=== PATIENT | female | born 1990 | race Caucasian/White ===

== ENCOUNTER 2017-08-02 18:17 | Observation (INO) | payer MEDICAID ==
[~2017-08-02] VITALS: Ht 167.6 cm; Wt 50.0 kg
[2017-08-02 19:23] LABS: BASOPHILS # (AUTO) 0.04 x10^3/uL (0-0.1); BASOPHILS % (AUTO) 1 % (0-1); EOSINOPHILS # (AUTO) 0.03 x10^3/uL (0-0.4); EOSINOPHILS % (AUTO) 1 % (1-7); LYMPHOCYTES # (AUTO) 1.96 x10^3/uL (1-3.4); LYMPHOCYTES % (AUTO) 35 % (22-44); MD NO; MEAN CORPUSCULAR HEMOGLOBIN 30.6 pg (27.0-34.8); MEAN CORPUSCULAR HGB CONC 34.3 g/dL (32.4-35.8); MEAN CORPUSCULAR VOLUME 89.3 fL (80-100); MEAN PLATELET VOLUME 10.6 fL (7.4-10.4); MONOCYTES # (AUTO) 0.48 x10^3/uL (0.2-0.8); MONOCYTES % (AUTO) 9 % (2-9); NEUTROPHILS # (AUTO) 3.12 x10^3/uL (1.8-6.8); NEUTROPHILS % (AUTO) 55 % (42-75); PLATELET COUNT 240 x10^3/uL (130-400); RED BLOOD COUNT 5.57 x10^6/uL (3.82-5.3); RED CELL DISTRIBUTION WIDTH 13.2 % (9.6-15.2)
[2017-08-02 19:33] LABS: ALANINE AMINOTRANSFERASE 22 U/L (12-78); ALBUMIN 4.1 g/dL (3.4-5.0); ANION GAP 15 mmol/L (5-15); CHLORIDE 103 mmol/L (98-107)
[2017-08-02 19:42] LABS: ALKALINE PHOSPHATASE 76 U/L (45-117); BILIRUBIN,TOTAL 0.7 mg/dL (0.2-1.0); CREATININE 0.97 mg/dL (0.55-1.02); TOTAL PROTEIN 7.9 g/dL (6.4-8.2)
[2017-08-02 19:43] LABS: SALICYLATE LEVEL < 1.7 mg/dL (2.8-20.0)
[2017-08-02 19:44] LABS: ACETAMINOPHEN < 2 mcg/mL (10-30)
[2017-08-03] MEDS ORDERED: LORazepam 1MG TABLET PO PRN (12:00)
[2017-08-03 16:00] LABS: AMPHETAMINE SCREEN, URINE Negative (Negative); BARBITURATE SCREEN, URINE Negative (Negative); BENZODIAZEPINE SCREEN, URINE Negative (Negative); CANNABINOID SCREEN, URINE Negative (Negative); COCAINE SCREEN, URINE Negative (Negative); METHADONE SCREEN, URINE Negative (Negative); OPIATE SCREEN, URINE Negative (Negative)
[2017-08-03] MEDS ORDERED: ZIPRASIDONE 20 MG INJ IM ONE (18:08)
[2017-08-03] MEDS ORDERED: ZIPRASIDONE 20 MG INJ IM PRN (19:00)
[2017-08-04 05:56] LABS: ANION GAP 9 mmol/L (5-15); CALCIUM 8.8 mg/dL (8.5-10.1); CHLORIDE 108 mmol/L (98-107)
[2017-08-04 05:59] LABS: CREATININE 1.06 mg/dL (0.55-1.02)
[2017-08-04] MEDS ORDERED: OLANZAPINE 10 MG INJ IM PRN (12:30)
[2017-08-04] MEDS ORDERED: THIAMINE 100MG TABLET ONE (12:37)
[2017-08-04] MEDS ORDERED: OLANZAPINE 5 MG TABLET ONE ×2 (12:37→20:16)
[2017-08-04] MEDS: OLANZAPINE 10 MG TABLET PO SCH ×2 (12:38→20:30)
[2017-08-04] MEDS: THIAMINE 100MG TABLET PO SCH ×2 (12:38→21:20)
[2017-08-04] MEDS ORDERED: OLANZAPINE 5 MG TABLET PO PRN (13:00)
[2017-08-04] MEDS ORDERED: LORazepam 1MG TABLET ONE (17:50)
[2017-08-05] MEDS ORDERED: OLANZAPINE 10 MG TABLET ONE ×2 (08:38→21:17)
[2017-08-05] MEDS ORDERED: THIAMINE 100MG TABLET ONE (08:48)
[2017-08-05] MEDS: THIAMINE 100MG TABLET PO SCH (08:52)
[2017-08-05] MEDS: OLANZAPINE 10 MG TABLET PO SCH ×2 (08:52→21:00)
[2017-08-05] MEDS ORDERED: OLANZAPINE 5 MG TABLET ONE (10:50)
[2017-08-05] MEDS ORDERED: OLANZAPINE 10 MG INJ IM PRN (11:00)
[2017-08-05] MEDS ORDERED: LORazepam 1MG TABLET ONE ×2 (15:29→15:58)
[2017-08-05] MEDS ORDERED: LORazepam 2 MG/ML, 1ML ONE (17:12)
[2017-08-05] MEDS ORDERED: LORazepam 2 MG/ML, 1ML IM PRN (17:30)
[2017-08-06] MEDS: THIAMINE 100MG TABLET PO SCH (09:00)
[2017-08-06] MEDS ORDERED: OLANZAPINE 10 MG TABLET ONE (09:42)
[2017-08-06] MEDS ORDERED: LORazepam 1MG TABLET ONE (09:42)
[2017-08-06] MEDS ORDERED: THIAMINE 100MG TABLET ONE (09:42)
[2017-08-06] MEDS: OLANZAPINE 10 MG TABLET PO SCH (10:23)
[2017-08-06] MEDS: OLANZAPINE ODT 10MG PO SCH (23:01)
[2017-08-07] MEDS ORDERED: OLANZAPINE 10 MG TABLET ONE ×2 (07:27→22:21)
[2017-08-07] MEDS ORDERED: THIAMINE 100MG TABLET ONE (07:27)
[2017-08-07] MEDS: THIAMINE 100MG TABLET PO SCH (08:07)
[2017-08-07] MEDS: OLANZAPINE ODT 10MG PO SCH ×2 (08:08→22:24)
[2017-08-08] MEDS: THIAMINE 100MG TABLET PO SCH ×2 (08:23→08:29)
[2017-08-08] MEDS: OLANZAPINE ODT 10MG PO SCH ×2 (08:23→21:04)
[2017-08-09] MEDS: THIAMINE 100MG TABLET PO SCH (09:00)
[2017-08-09] MEDS: OLANZAPINE ODT 10MG PO SCH (09:00)
[2017-08-09] MEDS: TERBINAFINE CRM 1%, 15GM TP SCH ×2 (18:37→21:06)
[2017-08-09] MEDS: PERPHENAZINE 4 MG TABLET PO SCH (20:56)
[2017-08-10] MEDS: THIAMINE 100MG TABLET PO SCH (08:13)
[2017-08-10] MEDS: PERPHENAZINE 4 MG TABLET PO SCH ×2 (10:47→22:07)
[2017-08-10] MEDS: TERBINAFINE CRM 1%, 15GM TP SCH ×2 (10:47→22:07)
[2017-08-10 20:00] VITALS: BP 107/65
[2017-08-11] MEDS: THIAMINE 100MG TABLET PO SCH (08:05)
[2017-08-11] MEDS: PERPHENAZINE 4 MG TABLET PO SCH ×2 (08:06→21:13)
[2017-08-11] MEDS: TERBINAFINE CRM 1%, 15GM TP SCH ×2 (09:45→21:16)
[2017-08-12] MEDS: PERPHENAZINE 4 MG TABLET PO SCH (08:25)
[2017-08-12] MEDS: THIAMINE 100MG TABLET PO SCH (08:25)
[2017-08-12] MEDS: TERBINAFINE CRM 1%, 15GM TP SCH (08:25)
== END 2017-08-12 16:08 | disposition home or self-care (01) ==
LOC: SUATTDRO 20:39 → ED 21:07 → INTOOBSV 21:15 → EDIP 21:15 → 3E 08-08 02:09
PROVIDERS: ADMIT Hospitalist; ATTEND Hospitalist
DX: F23 Brief psychotic disorder (principal); F25.9 Schizoaffective disorder, unspecified; F31.9 Bipolar disorder, unspecified; B35.3 Tinea pedis; F50.9 Eating disorder, unspecified; Z86.59 Personal history of other mental and behavioral disorders
CPT/HCPCS: 36415; 80048; 80053; 80307; 80329; 83735; 84100; 84703; 85025; 96372; 99285; G0378; J2060; J3486; G0480

== ENCOUNTER 2018-01-07 19:14 | Emergency (ER) | payer MEDICAID ==
[~2018-01-07] VITALS: Ht 165.1 cm; Wt 58.1 kg
[2018-01-07 19:49] LABS: BASOPHILS # (AUTO) 0.04 x10^3/uL (0-0.1); BASOPHILS % (AUTO) 0 % (0-1); EOSINOPHILS # (AUTO) 0.03 x10^3/uL (0-0.4); EOSINOPHILS % (AUTO) 0 % (1-7); LYMPHOCYTES # (AUTO) 1.39 x10^3/uL (1-3.4); LYMPHOCYTES % (AUTO) 15 % (22-44); MD NO; MEAN CORPUSCULAR HEMOGLOBIN 30.9 pg (27.0-34.8); MEAN CORPUSCULAR HGB CONC 34.6 g/dL (32.4-35.8); MEAN CORPUSCULAR VOLUME 89.3 fL (80-100); MEAN PLATELET VOLUME 9.5 fL (7.4-10.4); MONOCYTES # (AUTO) 0.58 x10^3/uL (0.2-0.8); MONOCYTES % (AUTO) 6 % (2-9); NEUTROPHILS # (AUTO) 7.15 x10^3/uL (1.8-6.8); NEUTROPHILS % (AUTO) 78 % (42-75); PLATELET COUNT 269 x10^3/uL (130-400); RED CELL DISTRIBUTION WIDTH 13.9 % (9.6-15.2)
[2018-01-07 20:01] LABS: ALANINE AMINOTRANSFERASE 19 U/L (12-78); ALBUMIN 4.4 g/dL (3.4-5.0); ANION GAP 18 mmol/L (5-15); CALCIUM 9.1 mg/dL (8.5-10.1); CHLORIDE 106 mmol/L (98-107); CREATININE 0.96 mg/dL (0.55-1.02)
[2018-01-07 20:04] LABS: ALKALINE PHOSPHATASE 86 U/L (45-117); BILIRUBIN,TOTAL 0.8 mg/dL (0.2-1.0); TOTAL PROTEIN 8.5 g/dL (6.4-8.2)
[2018-01-07 20:05] LABS: ACETAMINOPHEN < 2 mcg/mL (10-30); SALICYLATE LEVEL < 1.7 mg/dL (2.8-20.0)
[2018-01-07 23:02] LABS: AMPHETAMINE SCREEN, URINE Negative (Negative); BARBITURATE SCREEN, URINE Negative (Negative); BENZODIAZEPINE SCREEN, URINE Negative (Negative); CANNABINOID SCREEN, URINE Positive (Negative); COCAINE SCREEN, URINE Negative (Negative); METHADONE SCREEN, URINE Negative (Negative); OPIATE SCREEN, URINE Negative (Negative)
[2018-01-07] MEDS ORDERED: ZIPRASIDONE 20 MG INJ IM ONE (23:46)
[2018-01-08] MEDS ORDERED: SODIUM CHLORIDE FLUSH 10ML SYR IVF ONE
[2018-01-08] MEDS ORDERED: SODIUM CHLORIDE 0.9% 1,000ML IVBOLUS ONE
[2018-01-08] MEDS ORDERED: ZIPRASIDONE 20 MG INJ IM ONE ×3 (01:30→01:34)
[2018-01-08] MEDS ORDERED: DEXTROSE 50%, 50ML SYRINGE ONE (01:58)
[2018-01-08] MEDS ORDERED: DEXTROSE 50%, 50ML SYRINGE IVPush ONE (02:00)
[2018-01-08 03:57] LABS: BASOPHILS # (AUTO) 0.05 x10^3/uL (0-0.1); BASOPHILS % (AUTO) 1 % (0-1); EOSINOPHILS # (AUTO) 0.04 x10^3/uL (0-0.4); EOSINOPHILS % (AUTO) 1 % (1-7); LYMPHOCYTES # (AUTO) 1.64 x10^3/uL (1-3.4); LYMPHOCYTES % (AUTO) 24 % (22-44); MD NO; MEAN CORPUSCULAR HEMOGLOBIN 30.1 pg (27.0-34.8); MEAN CORPUSCULAR HGB CONC 34.1 g/dL (32.4-35.8); MEAN CORPUSCULAR VOLUME 88.2 fL (80-100); MEAN PLATELET VOLUME 9.6 fL (7.4-10.4); MONOCYTES # (AUTO) 0.68 x10^3/uL (0.2-0.8); MONOCYTES % (AUTO) 10 % (2-9); NEUTROPHILS # (AUTO) 4.36 x10^3/uL (1.8-6.8); NEUTROPHILS % (AUTO) 65 % (42-75); PLATELET COUNT 237 x10^3/uL (130-400); RED BLOOD COUNT 4.63 x10^6/uL (3.82-5.3); RED CELL DISTRIBUTION WIDTH 13.9 % (9.6-15.2)
[2018-01-08 03:58] LABS: ALANINE AMINOTRANSFERASE 17 U/L (12-78); ALBUMIN 3.7 g/dL (3.4-5.0); ANION GAP 10 mmol/L (5-15); CALCIUM 7.5 mg/dL (8.5-10.1); CHLORIDE 112 mmol/L (98-107); CREATININE 0.82 mg/dL (0.55-1.02)
[2018-01-08 04:00] LABS: ALKALINE PHOSPHATASE 76 U/L (45-117); BILIRUBIN,TOTAL 0.5 mg/dL (0.2-1.0); TOTAL PROTEIN 7.3 g/dL (6.4-8.2)
[2018-01-08 08:31] VITALS: BP 118/84
[2018-01-08] MEDS ORDERED: LORazepam 1MG TABLET ONE (09:22)
[2018-01-08] MEDS ORDERED: LORazepam 1MG TABLET PO ONE (09:30)
== END 2018-01-08 10:49 ==
LOC: ED 20:09
DX: F22 Delusional disorders (principal); R44.3 Hallucinations, unspecified; F25.9 Schizoaffective disorder, unspecified
CPT/HCPCS: 36415; 80053; 80307; 80329; 82962; 84703; 85025; 96372; 96374; 99285; J3486; J7030; G0480